=== PATIENT | male | born 1970 | race African-American/Black ===

== ENCOUNTER 2018-01-16 00:41 | Emergency (ER) | payer MEDICAID, OTHER ==
[~2018-01-16] VITALS: Ht 172.7 cm; Wt 84.7 kg
[~2018-01-16 00:41] MED LIST: ASPI-650 PO; CARV3.122 PO; FERR325T18 PO; FURO40TA6 PO; HYDR-3237 PO; LISI-167 PO; LORA2TAB99 PO; MAGN400T7 PO; OMEP-110 PO; POTA10TA11 PO; PRED20TA PO; SIMV20TA3 PO; SPIR25TA PO
[2018-01-16 00:45] VITALS: BP 139/108
[2018-01-16] MEDS ORDERED: ASPIRIN 81 MG TABLET CHEW PO ONE (01:00)
[2018-01-16 01:07] LABS: RED BLOOD COUNT 4.78 x10^6/uL (4.38-5.82)
[2018-01-16 01:08] LABS: BASOPHILS # (AUTO) 0.03 x10^3/uL (0-0.1); BASOPHILS % (AUTO) 0 % (0-1); EOSINOPHILS # (AUTO) 0.15 x10^3/uL (0-0.4); EOSINOPHILS % (AUTO) 2 % (1-7); LYMPHOCYTES # (AUTO) 1.68 x10^3/uL (1-3.4); LYMPHOCYTES % (AUTO) 17 % (22-44); MD NO; MEAN CORPUSCULAR HEMOGLOBIN 30.7 pg (27.5-34.5); MEAN CORPUSCULAR HGB CONC 33.7 g/dL (33.2-36.2); MEAN PLATELET VOLUME 8.4 fL (7.4-10.4); MONOCYTES # (AUTO) 0.61 x10^3/uL (0.2-0.8); MONOCYTES % (AUTO) 6 % (2-9); NEUTROPHILS # (AUTO) 7.66 x10^3/uL (1.8-6.8); NEUTROPHILS % (AUTO) 76 % (42-75); PLATELET COUNT 377 x10^3/uL (130-400); RED CELL DISTRIBUTION WIDTH 14.6 % (9.4-14.8)
[2018-01-16 01:20] LABS: ALBUMIN 3.3 g/dL (3.4-5.0); ANION GAP 6 mmol/L (5-15); CALCIUM 8.3 mg/dL (8.5-10.1); CHLORIDE 111 mmol/L (98-107); CREATININE 1.56 mg/dL (0.7-1.3)
[2018-01-16 01:24] LABS: TROPONIN I 0.052 ng/mL (0.000-0.045)
[2018-01-16] MEDS ORDERED: FUROSEMIDE 40 MG TABLET PO ONE (02:30)
[2018-01-16] MEDS ORDERED: FUROSEMIDE 20 MG TABLET ONE (02:41)
== END 2018-01-16 02:46 | disposition home or self-care (01) ==
LOC: ED 02:00
DX: I11.0 Hypertensive heart disease with heart failure (principal); I50.9 Heart failure, unspecified; R06.00 Dyspnea, unspecified; I25.2 Old myocardial infarction
CPT/HCPCS: 36415; 71045; 80048; 82040; 83880; 84484; 85025; 93005; 99285

== ENCOUNTER → 2021-06-19 | Outpatient (CLI) | payer BC ==
[~2021-06-19] MED LIST changes: -ASPI-650 PO; +ASPI325T20 PO; -MAGN400T7 PO; +MAGN400T9 PO; +SIMV20TA19 PO; -SIMV20TA3 PO
== END | disposition home or self-care (01) ==
LOC: CVU 08:31
PROVIDERS: ATTEND Nurse Practitioner Family
DX: I34.0 Nonrheumatic mitral (valve) insufficiency (principal); I42.9 Cardiomyopathy, unspecified; I11.9 Hypertensive heart disease without heart failure
CPT/HCPCS: 93306; 93356